=== PATIENT | male | born 1995 | race African-American/Black ===

== ENCOUNTER 2017-09-01 15:04 | Emergency (ER) | payer SELFPAY ==
[2017-09-02 09:25] LABS: NEGATIVE OBC STREP NEG; POSITIVE OBC STREP POS
== END 2017-09-01 15:56 | disposition home or self-care (01) ==
LOC: ER 15:04
DX: J02.8 Acute pharyngitis due to other specified organisms (principal); B97.89 Other viral agents as the cause of diseases classified elsewhere; F12.10 Cannabis abuse, uncomplicated
CPT/HCPCS: 87070; 87880; 99283